=== PATIENT | female | born 1995 | race Caucasian/White ===

== ENCOUNTER 2018-04-20 23:09 | Emergency (ER) | payer OTHER ==
--- NOTE | 2018-04-21 00:28 | EDPHY ---
H & P Time Seen by Provider: 04/20/18 23:50 HPI/ROS: Chief complaint: Facial laceration History of present illness: This is a 23-year-old female who presents to the emergency department for evaluation of a facial laceration. She was dancing with a friend when they lost their balance and fell down, she struck the left side of her face against a table. She sustained a small laceration. Minimal bleeding that was controlled with a dressing. No loss of consciousness. No report of other signs or symptoms including no headache, no neck pain, no paresthesias, no weakness or paralysis, no bowel or bladder dysfunction, no visual disturbances. Her tetanus is up-to-date. Smoking Status: Never smoked Physical Exam: General Appearance: Alert and no distress. Eyes: Pupils equal and round no injection. EOM intact. ENT: No hemotympanum, no White sign, no raccoon eyes Respiratory: Chest is non tender, lungs are clear to auscultation. Cardiac: regular rate and rhythm Musculoskeletal: The face is nontender. The head is nontender. The spine is nontender. No crepitus or bony deformity appreciated on palpation of these regions. Extremities have full range of motion and are non tender. Skin: Patient has a 1 cm stellate laceration 1 cm lateral to her left eye. No deep structure or foreign body contamination appreciated. Constitutional: Initial Vital Signs Temperature (C) 36.9 C 04/20/18 23:11 Heart Rate 81 04/20/18 23:11 Respiratory Rate 16 04/20/18 23:11 Blood Pressure 123/74 H 04/20/18 23:11 O2 Sat (%) 95 04/20/18 23:11 O2 Delivery Mode Room Air Allergies/Adverse Reactions: No Known Allergies Allergy (Unverified 04/20/18 23:17) Home Medications: Medication Instructions Recorded Birthcontrol 04/20/18 MDM/Departure - MDM Procedures: Procedure: Laceration repair. Verbal consent was obtained from the patient. The 1 cm stellate laceration on the face was anesthetized in the usual fashion. The wound was irrigated, draped and explored to its base with a gloved finger. There were no deep structures involved. No tendon injury was identified. The wound was repaired with 6 0 Prolene, 3 simple interrupted sutures. The wound repair was simple. The procedure was performed by myself. ED Course/Re-evaluation: Patient seen under the supervision of my secondary supervising physician Dr. Davin Hu. Patient presents for a small facial laceration that has been easily repaired. By history and physical examination I do not appreciate evidence of head trauma or further injury. Her tetanus is up-to-date. Patient will be discharged home. Home care is discussed. She is to follow up with a primary care doctor for recheck. Return precautions are given. Patient voiced understanding and agreement with plan. Differential Diagnosis: Included but not limited to superficial laceration, deep structure injury, foreign body contamination - Depart Disposition: Home, Routine, Self-Care Clinical Impression: Facial laceration Qualifiers: Encounter type: initial encounter Qualified Code(s): S01.81XA - Laceration without foreign body of other part of head, initial encounter Condition: Good Instructions: Facial Laceration (ED), Acute Wounds (ED) Additional Instructions: Follow-up with a primary care doctor for recheck. You can also follow up with a plastic surgeon if you want a recheck of your wound. Stitches to be removed in 7 days. If symptoms worsen or new symptoms develop return to the emergency department for recheck. Referrals: NONE *PRIMARY CARE P,. [Primary Care Provider] - As per Instructions Nadege Dickinson JR, MD [Medical Doctor] - As per Instructions America Sutton MD [[facility] [place] Primary Care Provider] - As per Instructions
[2018-04-21 00:50] VITALS: BP 120/76
== END 2018-04-21 00:48 | disposition home or self-care (01) ==
PROC: 0HQ1XZZ Repair Face Skin, External Approach (ICD-10-PCS; principal; 2018-04-20)
DX: S01.81XA Laceration without foreign body of other part of head, initial encounter (principal); W22.09XA Striking against other stationary object, initial encounter; Y93.41 Activity, dancing; Y99.8 Other external cause status